=== PATIENT | female | born 1975 | race American Indian/Alaskan Native ===

== ENCOUNTER 2017-01-23 16:29 | Emergency (ER) | payer SELFPAY ==
[2017-01-23] MEDS ORDERED: ZITHROMAX PO ONE (22:23)
[2017-01-23] MEDS ORDERED: XYLOCAINE 1% MPF 5 mL INFILTRATI ONE (22:24)
[2017-01-23] MEDS ORDERED: ROCEPHIN IM ONE (22:24)
--- NOTE | 2017-01-23 22:35 | Emergency Department Report ---
ED Female HPI - General Chief complaint: Urogenital-Female Stated complaint: VAG IRRITATION Time Seen by Provider: 01/23/17 21:48 Source: patient Mode of arrival: Ambulatory Limitations: No Limitations - History of Present Illness Initial comments: 41-year-old female past medical history hypertension insomnia, anemia presents with 2 weeks of uncomfortable foul-smelling vaginal discharge. Patient states she was taking [id number] yeast infection medicine but has not experienced any relief of her symptoms. Denies any abdominal pain no nausea no vomiting no fever no chills. Denies any increased urinary frequency or dysuria. States she is concerned she may have contracted chlamydia or gonorrhea from a sex partner. MD Complaint: vaginal discharge, possible STD Onset/Timin -: week(s) Location: labia Severity: mild Quality: burning Worsens with: intercourse Are you Now?: No Associated Symptoms: vaginal discharge - Related Data Sexually active: Yes Previous Rx's Medication Instructions Recorded Last Taken Type Lisinopril/Hydrochlorothiazide 1 tab PO QDAY #30 tablet 01/26/15 Unknown Rx [Zestoretic 20-12.5 mg] Nitrofurantoin [place]/M-Cryst 100 mg PO Q12HR #14 capsule 01/23/17 Unknown Rx [Macrobid CAP] metroNIDAZOLE [Flagyl TAB] 500 mg PO Q8HR #21 tablet 01/23/17 Unknown Rx Allergies Allergy/AdvReac Type Severity Reaction Status Date / Time No Known Allergies Allergy Verified 01/26/15 07:17 ED Review of Systems ROS: Stated complaint: VAG IRRITATION Other details as noted in HPI Constitutional: denies: chills, fever Eyes: denies: eye pain, eye discharge, vision change ENT: denies: ear pain, throat pain Respiratory: denies: cough, shortness of breath, wheezing Cardiovascular: denies: chest pain, palpitations Endocrine: no symptoms reported Gastrointestinal: denies: abdominal pain, nausea, diarrhea Genitourinary: discharge (yellowish whitish discharge). denies: urgency, dysuria Musculoskeletal: denies: back pain, joint swelling, arthralgia Skin: denies: rash, lesions Neurological: denies: headache, weakness, paresthesias Psychiatric: denies: anxiety, depression Hematological/Lymphatic: denies: easy bleeding, easy bruising ED Past Medical Hx - Past Medical History Previous Medical History?: Yes Hx Hypertension: Yes Additional medical history: back problems, insomnia, anemia - Surgical History Past Surgical History?: Yes Additional Surgical History: tubal ligation - Social History Smoking Status: Never Smoker Substance Use Type: None - Medications Home Medications: Home Medications Medication Instructions Recorded Confirmed Last Taken Type Lisinopril/Hydrochlorothiazide 1 tab PO QDAY #30 tablet 01/26/15 Unknown Rx [Zestoretic 20-12.5 mg] Nitrofurantoin [place]/M-Cryst 100 mg PO Q12HR #14 capsule 01/23/17 Unknown Rx [Macrobid CAP] metroNIDAZOLE [Flagyl TAB] 500 mg PO Q8HR #21 tablet 01/23/17 Unknown Rx ED Physical Exam - General Limitations: No Limitations General appearance: alert, in no apparent distress - Head Head exam: Present: atraumatic, normocephalic - Eye Eye exam: Present: normal appearance, PERRL, EOMI - ENT ENT exam: Present: mucous membranes moist - Neck Neck exam: Present: normal inspection - Respiratory Respiratory exam: Present: normal lung sounds bilaterally. Absent: respiratory distress - Cardiovascular Cardiovascular Exam: Present: regular rate, normal rhythm. Absent: systolic murmur, diastolic murmur, rubs, gallop - GI/Abdominal GI/Abdominal exam: Present: soft, normal bowel sounds - External exam: Present: lesions (whitish yellowish plaques inside vaginal canal) Speculum exam: Present: vaginal discharge Bi-manual exam: Present: normal bi-manual exam (no cervical motion or adnexal tenderness on exam) - Extremities Exam Extremities exam: Present: normal inspection, full ROM, normal capillary refill - Back Exam Back exam: Present: normal inspection, full ROM, other (patient has no CVA tenderness bilaterally) - Neurological Exam Neurological exam: Present: alert, oriented X3, CN II-XII intact, normal gait - Psychiatric Psychiatric exam: Present: normal affect, normal mood - Skin Skin exam: Present: warm, dry, intact, normal color. Absent: rash ED Course Vital Signs 01/23/17 17:17 Temperature 98.4 F Pulse Rate 104 H Respiratory 18 Rate Blood Pressure 155/100 O2 Sat by Pulse 100 Oximetry ED Medical Decision Making - Medical Decision Making A/P: Cervicitis, bacterial vaginosis, possible vulvar candidiasis, UTI 1-. Treatment for Chlamydia/gonorrhea with azithromycin and ceftriaxone, patient has no signs of PID on clinical exam no adnexal or cervical motion tenderness. Chlamydia gonorrhea culture sent 2-wet prep + for trich=> metronidazole 500 mg 3 times a day 7 days to cover empirically for bacterial vaginosis Trichomonas and 3-primary care and [facility] follow-up 4-macrobid BID x 7days for UTI, pt has NO cva/flank pain, no suprapubic pt, appears nontoxic, vitals WNL 5- pt has mildly elevated BP, NO symptoms no CP, no palpitation, NO SOB, no abdominal pain, no blurry vision, no headache or dizziness. I advised pt to f/u with primary care and have her BP recheck within the next 2 weeks. Critical care attestation.: If time is entered above; I have spent that time in minutes in the direct care of this critically ill patient, excluding procedure time. ED Disposition Clinical Impression: Cervicitis Urinary tract infection Qualifiers: Urinary tract infection type: urethritis Qualified Code(s): N34.2 - Other urethritis Disposition: DISCHARGED TO HOME OR SELFCARE Is pt being admited?: No Does the pt Need Aspirin: No Condition: Stable Instructions: Cervicitis (ED), Urinary Tract Infection in Women (ED), Trichomoniasis (ED) Prescriptions: metroNIDAZOLE [Flagyl TAB] 500 mg PO Q8HR #21 tablet Nitrofurantoin [place]/M-Cryst [Macrobid CAP] 100 mg PO Q12HR #14 capsule Referrals: [facility] [Provider Group] - 3-5 Days ELEONORA BARRIOS MD [Staff Physician] - 3-5 Days [facility] [place] [Outside] - 3-5 Days Forms: STI Treatment and Prevention, Work/School Release Form(ED) Time of Disposition: 23:57
[2017-01-23 23:46] LABS: Bilirubin,Urine NEG (Negative); Blood,Urine SM (Negative); Ketones,Urine NEG (Negative); Leukocyte Esterase,Urine LG (Negative); Mucus,Urine 3+ /HPF; Nitrite,Urine NEG (Negative); Urobilinogen,Urine < 2.0 mg/dL (<2.0)
[2017-01-23 23:47] LABS: WBC,Urine > 182.0 /HPF (0.0-6.0)
[2017-01-23] MEDS ORDERED: MACROBID PO ONE (23:56)
[2017-01-24 00:15] VITALS: BP 125/78
== END 2017-01-24 00:18 | disposition home or self-care (01) ==
LOC: ED 16:29
DX: N34.2 Other urethritis (principal); N72 Inflammatory disease of cervix uteri; I10 Essential (primary) hypertension; Z98.51 Tubal ligation status
CPT/HCPCS: 81001; 81025; 87086; 87210; 87591; 96372; 99283; J0696